=== PATIENT | male | born 1940 | race Caucasian/White ===

== ENCOUNTER 2016-08-28 18:00 | Emergency (ER) | payer MEDICARE ==
--- OUTSIDE RECORDS SUMMARY | 2016-08-28 18:05 | XMS REPORT ---
Author VALENTÍN Marquez Organization [employer] Address Unknown Phone Unavailable Care Team Providers Care Comber Tender Name Role Phone VALENTÍN BURTON CP Unavailable Allergies No Known Allergies Problems Problem Type Condition Code Onset Dates Condition Status Problem Screening for other and unspecified cardiovascular conditions V81.2 Active Problem Screening for diabetes mellitus V77.1 Active Problem Hypertension, benign I10 Active Problem Unspecified hypothyroidism 244.9 Active Problem Urinary tract infection, site not specified 599.0 Active Problem Essential hypertension, benign 401.1 Active Problem Issue of repeat prescriptions V68.1 Active Medications Medication Code System Code Instructions Start Date End Date Status Dosage Lisinopril-Hydrochlorothiazide [facility] [address]-10 10-12.5 MG Orally Once a day October 19, 2015 1 tablet Levothyroxine Sodium [facility] [address]-46 100 MCG Orally Once a day October 19, 2015 1 tablet Results No Known Results Summary Purpose [employer] Submission
== END 2016-08-28 18:05 | disposition left against medical advice (07) ==
LOC: EDUNIT# 18:00 → ER 18:03
DX: R06.02 Shortness of breath (principal); Z53.21 Procedure and treatment not carried out due to patient leaving prior to being seen by health care provider